=== PATIENT | female | born 1990 | race Caucasian/White ===

== ENCOUNTER 2016-09-03 18:11 | Emergency (ER) | payer OTHER ==
[2016-09-03 18:27] VITALS: RESP 18
--- NOTE | 2016-09-03 19:13 | ED ---
URI HPI - General Chief Complaint: Upper Respiratory Infection Stated Complaint: congestion, gabby, near syncope, chest pain w breath Time Seen by Provider: 09/03/16 18:33 Source: patient, RN notes reviewed Mode of arrival: ambulatory Limitations: no limitations - History of Present Illness Initial Comments: Patient is a 26-year-old female presents to the emergency room for evaluation of upper respiratory symptoms. Patient states she began not feeling well yesterday. Patient states today while she was at work she began having sinus congestion, facial pressure and dizziness. Patient states she also began having throat pain. Patient states she has a slight cough. Patient denies shortness of breath. Patient denies any significant cough. Patient denies smoking. 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 Patient denies fevers. Patient denies chest pain. Patient denies abdominal pain. Patient denies nausea, vomiting, diarrhea, constipation. Patient states she has been taking [id number] Chanda-Holmes with no relief of symptoms. - Related Data Previous Rx's Medication Instructions Recorded Fluticasone Nasal Leonard [Flonase 2 spr EA NOSTRIL DAILY #1 bottle 09/03/16 Nasal Leonard] guaiFENesin [Mucinex] 1,200 mg PO BID #10 tab.er.12h 09/03/16 Allergies Allergy/AdvReac Type Severity Reaction Status Date / Time No Known Allergies Allergy Verified 09/03/16 18:27 Review of Systems ROS Statement: Those systems with pertinent positive or pertinent negative responses have been documented in the HPI. ROS Other: All systems not noted in ROS Statement are negative. Past Medical History Past Medical History: No Reported History Additional Past Medical History / Comment(s): Herpes Genitalis--possible outbreak 11/14/2013 History of Any Multi-Drug Resistant Organisms: None Reported Past Surgical History: Section, Tonsillectomy Additional Past Surgical History / Comment(s): Adenoidectomy, [place] Teeth Past Anesthesia/Blood Transfusion Reactions: Postoperative Nausea & Vomiting ( PONV) Past Psychological History: Anxiety, Depression Additional Psychological History / Comment(s): no medications. history of depression, no current meds. Smoking Status: Never smoker Past Alcohol Use History: None Reported Past Drug Use History: None Reported - Past Family History Mother Family Medical History: Cancer, Hypertension Father Family Medical History: Hypertension General Exam - General Exam Comments Initial Comments: Sitting in exam room in no acute distress. Limitations: no limitations General appearance: alert, in no apparent distress Head exam: Present: atraumatic, normocephalic, normal inspection Eye exam: Present: normal appearance, PERRL, EOMI Pupils: Present: normal accommodation ENT exam: Present: normal exam Expanded Mouth exam: Present: normal external inspection Teeth exam: Present: normal inspection Throat exam: normal inspection Neck exam: Present: normal inspection Respiratory exam: Present: normal lung sounds bilaterally. Absent: respiratory distress Cardiovascular Exam: Present: regular rate, normal rhythm, normal heart sounds Extremities exam: Present: normal inspection Back exam: Present: normal inspection Neurological exam: Present: alert, oriented X3, CN II-XII intact, normal gait Psychiatric exam: Present: normal affect, normal mood Skin exam: Present: warm, dry, intact, normal color. Absent: rash Course Vital Signs 09/03/16 18:25 Temperature 97.4 F L Pulse Rate 77 Respiratory 18 Rate Blood Pressure 133/69 O2 Sat by Pulse 100 Oximetry Medical Decision Making - Medical Decision Making Patient is a 26-year-old female presents to the emergency room for evaluation of upper respiratory symptoms. Chest x-ray shows no acute findings. Influenza negative. Strep test negative. Place patient on Mucinex and Flonase and advised to follow-up with her primary care provider symptoms are not improving in 5-7 days. Patient stated she understands everything that was discussed with her. Return parameters discussed. Case discussed Dr. Thomson. - Lab Data Lab Results 09/03/16 09/03/16 Range/Units 19:18 19:18 Influenza Type A RNA Not Detected (Not Detectd) Influenza Type B (PCR) Not Detected (Not Detectd) Group A Strep Rapid Negative (Negative) - Radiology Data Radiology results: report reviewed, image reviewed Disposition Clinical Impression: Upper respiratory infection Disposition: HOME SELF-CARE Condition: Good Instructions: Upper Respiratory Infection (ED) Additional Instructions: Take Mucinex and use Flonase as directed. Alternate Tylenol or Motrin as needed for fever/bodyaches. Please follow up with primary care provider if symptoms are not improving in 5-7 days. If any new symptom arises or symptoms worsen, return to ER as soon as possible. Prescriptions: Fluticasone Nasal Leonard [Flonase Nasal Leonard] 2 spr EA NOSTRIL DAILY #1 bottle guaiFENesin [Mucinex] 1,200 mg PO BID #10 tab.er.12h Referrals: Cm Kruse MD [Primary Care Provider] - 1-2 days Time of Disposition: 20:17
--- NOTE | 2016-09-03 19:39 | XR ---
EXAMINATION TYPE: XR chest 1V DATE OF EXAM: 09/03/2016 7:30 PM COMPARISON: NONE HISTORY: Cough and congestion. TECHNIQUE: Single frontal view of the chest is obtained. FINDINGS: There is no focal air space opacity, pleural effusion, or pneumothorax seen. The cardiac silhouette size is within normal limits. The osseous structures are intact. IMPRESSION: No acute process.
[2016-09-03 20:28] VITALS: BP 120/78; PULSE 87; TEMP 98
== END 2016-09-03 20:28 | disposition home or self-care (01) ==
LOC: EC 18:11
DX: J06.9 Acute upper respiratory infection, unspecified (principal)
CPT/HCPCS: 71010; 87081; 87430; 87502; 99283

== ENCOUNTER 2016-11-08 06:34 | Emergency (ER) | payer OTHER ==
[2016-11-08] MEDS ORDERED: SODIUM CHLORIDE 0.9% 1,000 ML IV STA ×2 (07:22)
[2016-11-08] MEDS ORDERED: PANTOPRAZOLE 40 MG/10 ML VIAL IVP STA (07:22)
[2016-11-08] MEDS ORDERED: ONDANSETRON 4 MG/2 ML VIAL IVP STA (07:22)
--- NOTE | 2016-11-08 07:44 | ED ---
General Adult HPI - General Chief complaint: Abdominal Pain Stated complaint: abd pain, nausea Time Seen by Provider: 11/08/16 07:14 Source: patient, RN notes reviewed, old records reviewed Mode of arrival: ambulatory Limitations: no limitations - History of Present Illness Initial comments: This is a 26-year-old female ER today with abdominal pain. Patient does sore from epigastric to right upper quadrant abdominal pain with nausea and occasional diarrhea. Patient is a , denies chance of after tubal ligation. Patient states every time she she gets nauseous and is very bowel pain. Indigestion. No vomiting, she is does have persistent loose stools not frequent enough to be diarrhea, but does state that there is no blood. No [place] C no sick contacts. No change in medications, patient is on no weight loss or dietary regiments - Related Data Home Medications Medication Instructions Recorded Confirmed Acetaminophen Tab [Tylenol Tab] 1,000 mg PO ONCE PRN 11/08/16 11/08/16 Allergies Allergy/AdvReac Type Severity Reaction Status Date / Time No Known Allergies Allergy Verified 11/08/16 08:01 Review of Systems ROS Statement: Those systems with pertinent positive or pertinent negative responses have been documented in the HPI. ROS Other: All systems not noted in ROS Statement are negative. Past Medical History Past Medical History: No Reported History Additional Past Medical History / Comment(s): Herpes Genitalis--possible outbreak 11/14/2013 History of Any Multi-Drug Resistant Organisms: None Reported Past Surgical History: Section, Tonsillectomy Additional Past Surgical History / Comment(s): Adenoidectomy, [place] Teeth Past Anesthesia/Blood Transfusion Reactions: Postoperative Nausea & Vomiting ( PONV) Past Psychological History: Anxiety, Depression Additional Psychological History / Comment(s): no medications. history of depression, no current meds. Smoking Status: Never smoker Past Alcohol Use History: None Reported Past Drug Use History: None Reported - Past Family History Mother Family Medical History: Cancer, Hypertension Father Family Medical History: Hypertension General Exam Limitations: no limitations General appearance: alert, in no apparent distress Head exam: Present: atraumatic, normocephalic, normal inspection Eye exam: Present: normal appearance, PERRL, EOMI. Absent: scleral icterus, conjunctival injection, periorbital swelling ENT exam: Present: normal exam, mucous membranes moist Neck exam: Present: normal inspection. Absent: tenderness, meningismus, lymphadenopathy Respiratory exam: Present: normal lung sounds bilaterally. Absent: respiratory distress, wheezes, rales, rhonchi, stridor Cardiovascular Exam: Present: regular rate, normal rhythm, normal heart sounds. Absent: systolic murmur, diastolic murmur, rubs, gallop, clicks GI/Abdominal exam: Present: soft, normal bowel sounds. Absent: distended, tenderness, guarding, rebound, rigid Extremities exam: Present: normal inspection, full ROM, normal capillary refill. Absent: tenderness, pedal edema, joint swelling, calf tenderness Back exam: Present: normal inspection Neurological exam: Present: alert, oriented X3, CN II-XII intact Psychiatric exam: Present: normal affect, normal mood Skin exam: Present: warm, dry, intact, normal color. Absent: rash Course Vital Signs 11/08/16 11/08/16 06:37 09:00 Temperature 97.8 F 98.0 F Pulse Rate 87 84 Respiratory 18 20 Rate Blood Pressure 146/88 126/76 O2 Sat by Pulse 99 98 Oximetry Medical Decision Making - Medical Decision Making 26 female in the ER for evaluation. Patient presented for evaluation of bag abdominal discomfort. Lab work Are Normal, Patient Will Be Given Appropriate Follow-Up with GI and General Surgery regarding Possible HIDA Scan regarding Gallbladder Disease or GI Evaluation for Food Intolerance. Patient Agrees with Plan Will Be Discharged Home - Lab Data Result diagrams: 11/08/16 07:40 11/08/16 07:40 Lab Results 11/08/16 11/08/16 11/08/16 Range/Units 07:40 07:40 07:40 WBC (3.8-10.6) k/uL RBC (3.80-5.40) m/uL Hgb (11.4-16.0) gm/dL Hct (34.0-46.0) % MCV (80.0-100.0) fL MCH (25.0-35.0) pg MCHC (31.0-37.0) g/dL RDW (11.5-15.5) % Plt Count (150-450) k/uL Neutrophils % % Lymphocytes % % Monocytes % % Eosinophils % % Basophils % % Neutrophils # (1.3-7.7) k/uL Lymphocytes # (1.0-4.8) k/uL Monocytes # (0-1.0) k/uL Eosinophils # (0-0.7) k/uL Basophils # (0-0.2) k/uL Sodium 142 (137-145) mmol/L Potassium 3.6 (3.5-5.1) mmol/L Chloride 107 (98-107) mmol/L Carbon Dioxide 26 (22-30) mmol/L Anion Gap 9 mmol/L BUN 13 (7-17) mg/dL Creatinine 0.64 (0.52-1.04) mg/dL Est GFR (MDRD) Af Amer >60 (>60 ml/min/1.73 sqM) Est GFR (MDRD) Non-Af >60 (>60 ml/min/1.73 sqM) Glucose 93 (74-99) mg/dL Plasma Lactic Acid [place] (0.7-2.0) mmol/L Calcium 9.5 (8.4-10.2) mg/dL Total Bilirubin 0.7 (0.2-1.3) mg/dL AST 26 (14-36) U/L ALT 38 (9-52) U/L Alkaline Phosphatase 91 (38-126) U/L Total Protein 7.4 (6.3-8.2) g/dL Albumin 4.3 (3.5-5.0) g/dL Amylase 39 (30-110) U/L Lipase 39 (23-300) U/L Urine Color Yellow Urine Appearance Cloudy H (Clear) Urine pH 5.5 (5.0-8.0) Ur Specific [place] 1.031 (1.001-1.035) Urine Protein Trace H (Negative) Urine Glucose (UA) Negative (Negative) Urine Ketones Negative (Negative) Urine Blood Negative (Negative) Urine Nitrite Negative (Negative) Urine Bilirubin Negative (Negative) Urine Urobilinogen <2.0 (<2.0) mg/dL Ur Leukocyte Esterase Negative (Negative) Urine WBC 2 (0-5) /hpf Ur Squamous Epith Cells 4 (0-4) /hpf Urine Bacteria Rare H (None) /hpf Urine Mucus Moderate H (None) /hpf Urine HCG, Qual Not Detected (Not Detectd) 11/08/16 11/08/16 Range/Units 07:40 07:40 WBC 6.5 (3.8-10.6) k/uL RBC 4.49 (3.80-5.40) m/uL Hgb 12.8 (11.4-16.0) gm/dL Hct 36.8 (34.0-46.0) % MCV 81.9 (80.0-100.0) fL MCH 28.5 (25.0-35.0) pg MCHC 34.9 (31.0-37.0) g/dL RDW 12.7 (11.5-15.5) % Plt Count 257 (150-450) k/uL Neutrophils % 53 % Lymphocytes % 37 % Monocytes % 4 % Eosinophils % 4 % Basophils % 1 % Neutrophils # 3.4 (1.3-7.7) k/uL Lymphocytes # 2.4 (1.0-4.8) k/uL Monocytes # 0.3 (0-1.0) k/uL Eosinophils # 0.2 (0-0.7) k/uL Basophils # 0.0 (0-0.2) k/uL Sodium (137-145) mmol/L Potassium (3.5-5.1) mmol/L Chloride (98-107) mmol/L Carbon Dioxide (22-30) mmol/L Anion Gap mmol/L BUN (7-17) mg/dL Creatinine (0.52-1.04) mg/dL Est GFR (MDRD) Af Amer (>60 ml/min/1.73 sqM) Est GFR (MDRD) Non-Af (>60 ml/min/1.73 sqM) Glucose (74-99) mg/dL Plasma Lactic Acid [place] 0.8 (0.7-2.0) mmol/L Calcium (8.4-10.2) mg/dL Total Bilirubin (0.2-1.3) mg/dL AST (14-36) U/L ALT (9-52) U/L Alkaline Phosphatase (38-126) U/L Total Protein (6.3-8.2) g/dL Albumin (3.5-5.0) g/dL Amylase (30-110) U/L Lipase (23-300) U/L Urine Color Urine Appearance (Clear) Urine pH (5.0-8.0) Ur Specific [place] (1.001-1.035) Urine Protein (Negative) Urine Glucose (UA) (Negative) Urine Ketones (Negative) Urine Blood (Negative) Urine Nitrite (Negative) Urine Bilirubin (Negative) Urine Urobilinogen (<2.0) mg/dL Ur Leukocyte Esterase (Negative) Urine WBC (0-5) /hpf Ur Squamous Epith Cells (0-4) /hpf Urine Bacteria (None) /hpf Urine Mucus (None) /hpf Urine HCG, Qual (Not Detectd) - Radiology Data Radiology results: report reviewed (Ultrasound gallbladder is negative for acute disease), image reviewed Disposition Clinical Impression: Abdominal pain Disposition: HOME SELF-CARE Condition: Good Instructions: Abdominal Pain (ED) Referrals: Cm Kruse MD [Primary Care Provider] - 1-2 days
[2016-11-08 08:00] LABS: Basophils % (A) 1 %; CH 28.3; CHCM 34.7; Eosinophils # (A) 0.2 k/uL (0-0.7); Eosinophils % (A) 4 %; HCT 36.8 % (34.0-46.0); HDW 2.85; HGB 12.8 gm/dL (11.4-16.0); Luc # (Auto) 0.13; Luc % (Auto) 2; Lymphocytes # (A) 2.4 k/uL (1.0-4.8); Lymphocytes % (A) 37 %; MCH 28.5 pg (25.0-35.0); MCHC 34.9 g/dL (31.0-37.0); MCV 81.9 fL (80.0-100.0); Mean Platelet Volume 7.5; Monocytes # (A) 0.3 k/uL (0-1.0); Monocytes % (A) 4 %; Neutrophils # (A) 3.4 k/uL (1.3-7.7); Neutrophils % (A) 53 %; RBC 4.49 m/uL (3.80-5.40); RDW 12.7 % (11.5-15.5); WBC 6.5 k/uL (3.8-10.6); WBC (Perox) 6.52
[2016-11-08 08:13] LABS: ALT 38 U/L (9-52); AST 26 U/L (14-36); Alkaline Phosphatase 91 U/L (38-126); Amylase 39 U/L (30-110); Anion Gap 9 mmol/L; Blood Urea Nitrogen 13 mg/dL (7-17); Calcium 9.5 mg/dL (8.4-10.2); Carbon Dioxide 26 mmol/L (22-30); Chloride 107 mmol/L (98-107); Glucose 93 mg/dL (74-99); Non-African American GFR(MDRD) >60 (>60 ml/min/1.73 sqM); Potassium 3.6 mmol/L (3.5-5.1); Sodium 142 mmol/L (137-145); Total Bilirubin 0.7 mg/dL (0.2-1.3); Total Protein 7.4 g/dL (6.3-8.2)
[2016-11-08 08:24] LABS: Appearance,Urine Cloudy (Clear); Bacteria,Urine Rare /hpf; Bilirubin,Urine Negative (Negative); Glucose,Urine (UA) Negative (Negative); Ketones,Urine Negative (Negative); Leukocyte Esterase,Urine Negative (Negative); Mucus,Urine Moderate /hpf; Nitrite,Urine Negative (Negative); PH, Urine 5.5 (5.0-8.0); Particle Count 9766; Protein,Urine Trace (Negative); Specific Gravity,Urine 1.031 (1.001-1.035); Squamous Epithelial Cell,Urine 4 /hpf (0-4); UA Billing (MACRO vs. MICRO) MICRO; Urobilinogen,Urine <2.0 mg/dL (<2.0); WBC,Urine 2 /hpf (0-5)
--- NOTE | 2016-11-08 09:28 | US ---
EXAMINATION TYPE: US gallbladder DATE OF EXAM: 11/08/2016 8:18 AM COMPARISON: NONE CLINICAL HISTORY: Pain. Diarrhea, intermittent pain EXAM MEASUREMENTS: Liver Length: 18.5 cm Gallbladder Wall: 0.2 cm CBD: 0.2 cm Right Kidney: 10.3 x 5.9 x 3.6 cm Pancreas: echogenic Liver: wnl Gallbladder: wnl, fold seen Evidence for sonographic Good's sign: neg CBD: wnl Right Kidney: wnl IMPRESSION: No significant abnormality identified at this time.
[2016-11-08 09:58] VITALS: BP 116/80; PULSE 76; RESP 16; TEMP 97.2
== END 2016-11-08 10:10 | disposition home or self-care (01) ==
LOC: EC 06:34
DX: R10.13 Epigastric pain (principal); R10.11 Right upper quadrant pain; R11.0 Nausea; R19.7 Diarrhea, unspecified; K30 Functional dyspepsia
CPT/HCPCS: 36415; 80053; 82150; 83605; 83690; 85025; 81001; 81025; 87491; 87591; 87086; 76705; 99284; 96374; 96375; 96361 ×2; J2405; C9113

== ENCOUNTER → 2016-11-29 | Outpatient (CLI) | payer OTHER ==
--- NOTE | 2016-11-30 09:33 | NM ---
Nuclear medicine hepatobiliary scan. HISTORY: Pain. COMPARISON: Ultrasound 11/08/2016 FINDINGS: The patient received At one hour 8 ounces of oral ensure plus and 5.45 mCi of Technetium 99m Chol etec. There is normal hepatic extraction. The gallbladder is seen by 10 minutes. There is biliary to kash l clearance by 40 minutes. Ejection fraction is 49%. IMPRESSION: 1. Normal hepatobiliary exam. There may be prominence of the left biliary intrahepatic system. Mellisa rosenbaum recent ultrasound demonstrated no abnormality.
== END | disposition home or self-care (01) ==
LOC: RADNMMAIN 15:01
PROVIDERS: ATTEND Internal Medicine
DX: R10.11 Right upper quadrant pain (principal)
CPT/HCPCS: 78226; A9537

== ENCOUNTER 2017-03-29 19:12 | Emergency (ER) | payer OTHER ==
[2017-03-29 19:18] VITALS: TEMP 98.1
--- NOTE | 2017-03-29 19:56 | CT ---
EXAMINATION TYPE: CT brain wo con DATE OF EXAM: 03/29/2017 COMPARISON: 05/12/2013 HISTORY: Right side parietal pain CT DLP: 944.2 mGycm. Automated Exposure Control for Dose Reduction was Utilized. TECHNIQUE: CT scan of the head is performed without contrast. FINDINGS: Ventricles and sulci appear normal. There is no mass effect nor midline shift. There is no sign of intracranial hemorrhage. The calvarium is intact. CONCLUSION: Negative unenhanced head CT scan. No change.
[2017-03-29] MEDS ORDERED: BUTALB/APAP/CAFF 50-325-40MG TAB PO STA (20:15)
[2017-03-29] MEDS ORDERED: ONDANSETRON 4 MG ODT STARTER PACK 2 TAB BTL PO STA (20:15)
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
[2017-03-29 20:39] VITALS: BP 127/87; PULSE 60; RESP 16
--- NOTE | 2017-04-02 06:55 | CDI ---
Dear Russ ROJAS MD: Please do addendum ER document. Thank you Mindy Anderson, Head Cook. If you have any questions, please contact Music Teacher at [phone]. ATIYAD
== END 2017-03-29 20:39 | disposition home or self-care (01) ==
LOC: EC 19:12
DX: R51 Headache (principal)
CPT/HCPCS: 70450; 99284; S0119

== ENCOUNTER → 2018-01-25 | Outpatient (CLI) | payer OTHER ==
--- NOTE | 2018-01-25 23:00 | MR ---
EXAMINATION TYPE: MR brain/cspine wo DATE OF EXAM: 01/25/2018 COMPARISON: CT brain March 29, 2017 HISTORY: Headaches and cervicalgia per order. Migraine headaches for 1 year per patient. TECHNIQUE: Multiplanar, multisequence imaging of the cervical spine, brain, and brainstem are all per formed without IV contrast. FINDINGS: BRAIN: Diffusion weighted images demonstrate no evidence of a recent infarct or other diffusion abnormality. There is no extraaxial fluid collection or significant white matter signal abnormality. The ventricu lar system and cisternal spaces are normal in size and appearance. The brain volume is age appropria te. Midline structures demonstrate normal morphology. The craniocervical junction appears within normal limits. Normal vascular flow voids are present. The lobes are slightly distorted by artifact. Visuali zed paranasal sinuses are clear. Nasal septum is deviated to right of midline. IMPRESSION: No significant finding is seen to account for patient's symptoms. C-SPINE: FINDINGS: Sagittal images of the cervical spine show the craniocervical junction to appear within nor mal limits. The cervical and upper thoracic spinal cord is normal in course, caliber, and signal. V ertebral alignment is anatomic. The vertebral body and intravertebral disk heights are normal. Small posterior disc herniations are seen at C4-C5 and C5-C6 levels mildly effacing the anterior thecal sa c on sagittal images. The bone marrow signal intensity is within normal limits. No significant spurr ing is seen. Axial images show the C2-C3 and C3-C4 levels to appear within normal limits. Axial images at C4-C5 level shows central disc protrusion effacing anterior thecal sac on axial image 33, bilateral neural foramina are patent. Axial images at C5-C6 level showed tiny central disc protrusion minimally effacing anterior thecal sa c, bilateral neural foramina are patent. Axial images at C6-C7 level showed tiny broad based right paracentral disc protrusion minimally effac ing anterior thecal sac, bilateral neural foramina are patent. Axial images at C7-T1 level are felt within normal limits. IMPRESSION: Multilevel tiny disc herniations with most prominent disc herniation C4-C5 level effacing the anterior thecal sac.
== END | disposition home or self-care (01) ==
LOC: RADMRIMAIN 20:43
PROVIDERS: ATTEND Psychiatry & Neurology Pain Medicine
DX: M50.221 Other cervical disc displacement at C4-C5 level (principal); R51 Headache
CPT/HCPCS: 70551; 72141

== ENCOUNTER → 2018-10-30 | Outpatient (CLI) | payer OTHER ==
--- NOTE | 2018-10-30 21:51 | MR ---
EXAMINATION TYPE: MR brain wo con DATE OF EXAM: 10/30/2018 COMPARISON: 01/25/2018 HISTORY: Headache, Dizziness CONTRAST: Performed utilizing 0 mL intravenous Gadavist gadolinium contrast. TECHNIQUE: Multiplanar, multiecho imaging on a 3.0 Aminata magnet is performed through the brain. Stud y is performed within 24 hours of arrival to the hospital. The craniovertebral junction is normal. The pituitary is normal. Diffusion-weighted imaging is performed. No abnormal hyperintensity is present to suggest an acute i ntracranial infarct or acute ischemic change. Signal through the brain appears normal. Nicholson-white matter differentiation is preserved. Ventricles and sulci are appropriate for the patient age. Optic chiasm is visualized is normal. Paranasal sinuses and mastoid air cells are clear. IMPRESSIONS: 1. No suspicious acute signal changes through the brain. 2. Examination is stable from the 2017 comparison.
== END ==
LOC: RADMRIMAIN 17:23
PROVIDERS: ATTEND Psychiatry & Neurology Neurology
DX: R51 Headache (principal)
CPT/HCPCS: 70551

== ENCOUNTER 2020-01-11 18:19 | Emergency (ER) | payer OTHER ==
[2020-01-11 18:23] VITALS: TEMP 98.6
--- NOTE | 2020-01-11 19:11 | US ---
EXAMINATION TYPE: US venous doppler duplex LE RT DATE OF EXAM: 01/11/2020 6:59 PM COMPARISON: US CLINICAL HISTORY: r/o dvt. Right calf pain SIDE PERFORMED: Right TECHNIQUE: The lower extremity deep venous system is examined utilizing real time linear array sonog moisés with graded compression, doppler sonography and color-flow sonography. VESSELS IMAGED: External Iliac Vein (EIV) Common Femoral Vein Deep Femoral Vein Greater Saphenous Vein * Femoral Vein Popliteal Vein Small Saphenous Vein * Proximal Calf Veins (* superficial vessels) Right Leg: Negative for DVT, patent varicose veins medial right calf in area of pain IMPRESSION: No evidence of deep vein thrombosis in the right leg. There are superficial varicose vein s.
--- NOTE | 2020-01-11 19:56 | ED ---
Extremity Problem HPI - General Chief complaint: Extremity Problem,Nontraumatic Stated complaint: Leg swelling Time Seen by Provider: 01/11/20 18:25 Source: patient Mode of arrival: ambulatory Limitations: no limitations - History of Present Illness Initial comments: Patient is a 29-year-old female who presents emergency Department with reported right distal thigh pain and Swelling. Patient reports that the pain started last night. She does have significant varicose veins and states that she will have swelling which is worse in her right leg than her left. She denies a history of DVT or PE. Admits to history of superficial thrombophlebitis. Admits the area is tender to touch. Denies inability to ambulate. No weakness in the extremity. Denies any fevers or chills. No chest pain or shortness of breath. Denies cough or hemoptysis. There are no other alleviating, precipitating or modifying factors - Related Data Home Medications Medication Instructions Recorded Confirmed No Known Home Medications 06/19/17 06/19/17 Allergies Allergy/AdvReac Type Severity Reaction Status Date / Time No Known Allergies Allergy Verified 01/11/20 18:22 Review of Systems ROS Statement: Those systems with pertinent positive or pertinent negative responses have been documented in the HPI. ROS Other: All systems not noted in ROS Statement are negative. Past Medical History Past Medical History: No Reported History Additional Past Medical History / Comment(s): Herpes Genitalis--possible outbreak 11/14/2013, migraine headaches History of Any Multi-Drug Resistant Organisms: None Reported Past Surgical History: Section, Tonsillectomy Additional Past Surgical History / Comment(s): Adenoidectomy, [place] Teeth Past Anesthesia/Blood Transfusion Reactions: Postoperative Nausea & Vomiting (PONV) Past Psychological History: Anxiety, Depression Smoking Status: Never smoker Past Alcohol Use History: None Reported Past Drug Use History: None Reported - Past Family History Mother Family Medical History: Cancer, Hypertension Father Family Medical History: Hypertension General Exam Limitations: no limitations General appearance: alert, in no apparent distress Respiratory exam: Present: normal lung sounds bilaterally. Absent: respiratory distress, wheezes, rales, rhonchi, stridor Cardiovascular Exam: Present: regular rate, normal rhythm, normal heart sounds. Absent: systolic murmur, diastolic murmur, rubs, gallop, clicks Extremities exam: Present: pedal edema, other (marked varicose vein burden. Right>left. Right posterior thigh has tender varicose vein with surrounding edema and erythema. No calf pain bilaterally. 2+ DP and PT pulses. Intact sensation. 5/5 muscle strength in the bilateral lower extremities) Neurological exam: Present: alert, oriented X3, CN II-XII intact Course Vital Signs 01/11/20 01/11/20 18:20 20:08 Temperature 98.6 F Pulse Rate 83 82 Respiratory 16 18 Rate Blood Pressure 151/89 131/86 O2 Sat by Pulse 98 98 Oximetry Medical Decision Making - Medical Decision Making Upon arrival the patient is placed into room 22. No history and physical exam is performed. Examination reveals tenderness to palpation of the patient's righ t distal thigh. Ultrasound was performed which demonstrates varicosity at the area pain. No signs of superficial Phlebitis or DVT. I Did Discuss Diagnosis, Differential and Treatment Options. I Did Recommend That the Patient Follow up with Her Primary Care Physician. Use Compression Stockings and Take NSAIDs As Needed. Return to the Emergency Room for Any New or Worsening Symptoms. Patient Was in Agreement That She Was Discharged Home in Stable Condition Disposition Clinical Impression: Right leg pain, Varicose vein of leg Disposition: HOME SELF-CARE Condition: Stable Instructions (If sedation given, give patient instructions): Venous Insufficiency (DC) Additional Instructions: Please follow-up with your doctor for further recommendations in regards to treatment of her varicose veins. I do recommend wearing compression stockings. Take anti-inflammatories. Return to the emergency room for any new or worsening symptoms Is patient prescribed a controlled substance at d/c from ED?: No Referrals: Cm Kruse MD [Primary Care Provider] - 1-2 days Time of Disposition: 19:56
[2020-01-11 20:10] VITALS: BP 131/86; PULSE 82; RESP 18
== END 2020-01-11 20:12 | disposition home or self-care (01) ==
LOC: EC 18:19
DX: I83.811 Varicose veins of right lower extremity with pain (principal); I83.891 Varicose veins of right lower extremity with other complications
CPT/HCPCS: 99283

== ENCOUNTER → 2020-04-05 | Outpatient (CLI) | payer OTHER | END | disposition home or self-care (01) | LOC: LABWHC1 13:19 | PROVIDERS: ATTEND Internal Medicine | DX: R05 Cough (principal); J02.9 Acute pharyngitis, unspecified; R09.81 Nasal congestion | CPT/HCPCS: U0003; C9803 ==

== ENCOUNTER 2020-11-16 18:33 | Emergency (ER) | payer OTHER ==
[2020-11-16] MEDS ORDERED: SODIUM CHLORIDE 0.9% 1,000 ML IV STA (19:14)
[2020-11-16] MEDS ORDERED: METOCLOPRAMIDE 5 MG/ML 2 ML VIAL IVP STA (19:15)
[2020-11-16] MEDS ORDERED: KETOROLAC 15 MG/ML 1 ML VIAL IVP STA (19:15)
[2020-11-16] MEDS ORDERED: diphenhydrAMINE 50 MG/ML 1 ML VIAL IVP STA (19:15)
--- NOTE | 2020-11-16 19:17 | ED ---
Headache HPI - General Chief Complaint: Headache Stated Complaint: migraine Time Seen by Provider: 11/16/20 19:03 Mode of arrival: ambulatory Limitations: no limitations - History of Present Illness Initial Comments: 30-year-old female with history of microcytic presented emergency Department chief complaint of a headache. States the symptoms began yesterday night with a gradual onset. States the pain is 8/10 at this time mostly located on the left side of the forehead head. Patient also reports photosensitivity with nausea but only one episode of vomiting early this one. She also reports 1 episode of diarrhea which is typical for her. States she took Benadryl and Tylenol home with no significant permanent symptoms. She denies any visual changes. She denies any one-sided weakness or paresthesias. Not the worst headache of her life. Denies any chest pain or shortness of breath. She only sees a neurologist for her chronic headaches. Patient currently started her menstrual period. - Related Data Previous Rx's Medication Instructions Recorded Ondansetron Odt [Zofran Odt] 4 mg PO Q8HR PRN #14 tab 11/16/20 Allergies Allergy/AdvReac Type Severity Reaction Status Date / Time No Known Allergies Allergy Verified 11/16/20 18:44 Review of Systems ROS Statement: Those systems with pertinent positive or pertinent negative responses have been documented in the HPI. ROS Other: All systems not noted in ROS Statement are negative. Past Medical History Past Medical History: No Reported History Additional Past Medical History / Comment(s): Herpes Genitalis--possible outbreak 11/14/2013, migraine headaches History of Any Multi-Drug Resistant Organisms: None Reported Past Surgical History: Section, Tonsillectomy, Tubal Ligation Additional Past Surgical History / Comment(s): Adenoidectomy, [place] Teeth Past Anesthesia/Blood Transfusion Reactions: Postoperative Nausea & Vomiting (PONV) Past Psychological History: Anxiety, Bipolar, Depression Smoking Status: Never smoker Past Alcohol Use History: None Reported Past Drug Use History: None Reported - Past Family History Mother Family Medical History: Cancer, Hypertension Father Family Medical History: Hypertension General Exam Limitations: no limitations General appearance: alert, in no apparent distress Head exam: Present: atraumatic, normocephalic, normal inspection Eye exam: Present: normal appearance, PERRL, EOMI Pupils: Present: normal accommodation ENT exam: Present: normal exam, normal oropharynx, mucous membranes moist, TM's normal bilaterally, normal external ear exam Neck exam: Present: normal inspection, full ROM. Absent: tenderness Respiratory exam: Present: normal lung sounds bilaterally. Absent: respiratory distress, wheezes, rales, rhonchi, stridor, chest wall tenderness Cardiovascular Exam: Present: regular rate, normal rhythm, normal heart sounds. Absent: systolic murmur GI/Abdominal exam: Present: soft. Absent: distended, tenderness, guarding, rebound, rigid Extremities exam: Present: normal inspection, full ROM, normal capillary refill. Absent: tenderness, pedal edema, joint swelling Back exam: Present: normal inspection, full ROM. Absent: tenderness, CVA tenderness (R), CVA tenderness (L) Neurological exam: Present: alert, oriented X3 Psychiatric exam: Present: normal affect, normal mood Skin exam: Present: warm, dry, intact, normal color Course Vital Signs 11/16/20 11/16/20 18:42 20:20 Temperature 98.3 F 98.0 F Pulse Rate 113 H 53 L Respiratory 20 18 Rate Blood Pressure 135/83 107/69 O2 Sat by Pulse 99 98 Oximetry Medical Decision Making - Medical Decision Making 30-year-old female with history of migraines presents emergency Department with a chief complaint of a headache. On physical examination, no focal neural deficits. This is her typical migraine headache is alleviated with a migraine cocktail involving Reglan, Benadryl, Toradol and IV fluids. On reevaluation, patient reports improvement in symptoms. Patient states she feels comfortable going home. I did give her a prescription for Zofran. Return parameters were discussed with patient was an ascending agreeable. She will follow up with her neurologist. Case discussed with Disposition Clinical Impression: Headache Disposition: HOME SELF-CARE Condition: Stable Instructions (If sedation given, give patient instructions): Acute Headache (ED) Additional Instructions: Please return to the Emergency Department if symptoms worsen or any other concerns. Prescriptions: Ondansetron Odt [Zofran Odt] 4 mg PO Q8HR PRN #14 tab PRN Reason: Nausea Is patient prescribed a controlled substance at d/c from ED?: No Referrals: Cm Kruse MD [Primary Care Provider] - 1-2 days Time of Disposition: 20:16
[2020-11-16 20:28] VITALS: BP 107/69; PULSE 53; RESP 18; TEMP 98
== END 2020-11-16 20:34 | disposition home or self-care (01) ==
LOC: EC 18:33
DX: R51.9 Headache, unspecified (principal); F32.9 Major depressive disorder, single episode, unspecified; Z90.09 Acquired absence of other part of head and neck; Z98.51 Tubal ligation status
CPT/HCPCS: 99283; 96374; 96375 ×2; 96361; J1200; J2765; J1885

== ENCOUNTER 2021-11-20 15:09 | Emergency (ER) | payer OTHER ==
[2021-11-20 15:23] VITALS: BP 129/87; PULSE 65; RESP 20; TEMP 97.7
== END 2021-11-20 17:33 | disposition left against medical advice (07) ==
LOC: EC 15:09
DX: Z53.21 Procedure and treatment not carried out due to patient leaving prior to being seen by health care provider (principal); U07.1 COVID-19; R51.9 Headache, unspecified
CPT/HCPCS: 87635; 99499

== ENCOUNTER 2022-04-20 08:30 | Emergency (ER) | payer OTHER ==
[2022-04-20 08:41] VITALS: RESP 18; TEMP 97.8
[2022-04-20] MEDS ORDERED: SODIUM CHLORIDE 0.9% 2,000 ML IV ONE (08:45)
[2022-04-20] MEDS ORDERED: KETOROLAC 15 MG/ML 1 ML VIAL IVP STA (08:45)
--- NOTE | 2022-04-20 11:04 | ED ---
Headache HPI - General Chief Complaint: Headache Stated Complaint: migrane Time Seen by Provider: 04/20/22 08:35 Source: RN notes reviewed Mode of arrival: ambulatory Limitations: no limitations - History of Present Illness Initial Comments: 31-year-old female presents emergency from chief complaint of migraine headache. Patient states she has chronic migraines unable to alleviate it sometimes and has present emergency department. Patient states she's been taking her normal cocktail at home because it makes her too tired. Patient presents today with her normal headache pattern on the left side no visual changes at this time states she does see Dr. Kymberly victoria and multiple imaging no fevers chills no neck pain no focal weakness while nausea - Related Data Previous Rx's Medication Instructions Recorded Ondansetron Odt [Zofran Odt] 4 mg PO Q8HR PRN #14 tab 11/16/20 Allergies Allergy/AdvReac Type Severity Reaction Status Date / Time No Known Allergies Allergy Verified 04/20/22 08:41 Review of Systems ROS Statement: Those systems with pertinent positive or pertinent negative responses have been documented in the HPI. ROS Other: All systems not noted in ROS Statement are negative. Past Medical History Past Medical History: No Reported History Additional Past Medical History / Comment(s): Herpes Genitalis--possible out break 11/14/2013, migraine headaches History of Any Multi-Drug Resistant Organisms: None Reported Past Surgical History: Section, Tonsillectomy, Tubal Ligation Additional Past Surgical History / Comment(s): Adenoidectomy, [place] Teeth Past Anesthesia/Blood Transfusion Reactions: Postoperative Nausea & Vomiting (PONV) Past Psychological History: Anxiety, Bipolar, Depression Smoking Status: Never smoker Past Alcohol Use History: None Reported Past Drug Use History: Marijuana - Past Family History Mother Family Medical History: Cancer, Hypertension Father Family Medical History: Hypertension General Exam Limitations: no limitations General appearance: alert, in no apparent distress Head exam: Present: atraumatic, normocephalic, normal inspection Eye exam: Present: normal appearance, PERRL, EOMI. Absent: scleral icterus, conjunctival injection, periorbital swelling ENT exam: Present: normal exam, normal oropharynx, mucous membranes moist Neck exam: Present: normal inspection, full ROM. Absent: tenderness, meningismus, lymphadenopathy Respiratory exam: Present: normal lung sounds bilaterally. Absent: respiratory distress, wheezes, rales, rhonchi, stridor Cardiovascular Exam: Present: regular rate, normal rhythm, normal heart sounds. Absent: systolic murmur, diastolic murmur, rubs, gallop, clicks GI/Abdominal exam: Present: soft, normal bowel sounds. Absent: distended, tenderness, guarding, rebound, rigid Neurological exam: Present: alert, oriented X3, CN II-XII intact, reflexes normal. Absent: motor sensory deficit Skin exam: Present: warm, dry, intact, normal color. Absent: rash Course Vital Signs 04/20/22 04/20/22 04/20/22 08:37 10:02 11:13 Temperature 97.8 F Pulse Rate 78 73 72 Respiratory 18 18 18 Rate Blood Pressure 130/82 125/79 129/81 O2 Sat by Pulse 100 99 96 Oximetry Medical Decision Making - Medical Decision Making Patient is improved after migraine cocktail be discharged in stable condition. Disposition Clinical Impression: Migraine headache Disposition: HOME SELF-CARE Condition: Stable Instructions (If sedation given, give patient instructions): Acute Headache (ED) Additional Instructions: Please return to the Emergency Department if symptoms worsen or any other concerns. Is patient prescribed a controlled substance at d/c from ED?: No Referrals: Cm Kruse MD [Primary Care Provider] - 1-2 days Time of Disposition: 11:04
[2022-04-20 11:14] VITALS: BP 129/81; PULSE 72
== END 2022-04-20 11:14 | disposition home or self-care (01) ==
LOC: EC 08:30
DX: G43.909 Migraine, unspecified, not intractable, without status migrainosus (principal)
CPT/HCPCS: 99283; 96374; 96375; 96361; J1885; J1790

== ENCOUNTER 2023-02-20 03:26 | Emergency (ER) | payer OTHER ==
[2023-02-20 03:44] VITALS: TEMP 98.8
[2023-02-20] MEDS ORDERED: KETOROLAC 15 MG/ML 1 ML VIAL IM STA (03:59)
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
[2023-02-20 06:20] VITALS: BP 133/86; PULSE 86; RESP 18
--- NOTE | 2023-02-20 06:42 | CT ---
EXAMINATION TYPE: CT brain carmelita grace DATE OF EXAM: 02/20/2023 COMPARISON: 03/29/2017 HISTORY: Fall, pain CT Brain: Unenhanced CT of the brain was performed. The ventricles, basal cisterns and sulci overlying the cerebral convexities demonstrate a normal appe arance. There is no evidence for intracranial hemorrhage or sulcal effacement. No mass effects are seen. Area of decreased attenuation left parietal lobe seen on the axial data se t 27 of 55 corresponds to a sulcus on the coronal and sagittal data sets. If symptoms persist consider MRI. Osseous calvarium is intact. IMPRESSION: No acute intracranial process CT Cervical Spine: Unenhanced CT of the cervical spine was performed with bone and soft tissue window settings submitted . Coronal and sagittal reconstruction is obtained. There is normal alignment and prevertebral soft tissues. I do not see evidence for fracture or sublu xation. Mild scattered degenerative disc space narrowing and spondylosis. The lung apices are clear. IMPRESSION: No evidence for acute fracture or subluxation of the cervical spine.
== END 2023-02-20 06:20 | disposition home or self-care (01) ==
LOC: EC 03:26
DX: S16.1XXA Strain of muscle, fascia and tendon at neck level, initial encounter (principal); R45.6 Violent behavior; F12.90 Cannabis use, unspecified, uncomplicated; Z86.59 Personal history of other mental and behavioral disorders; X58.XXXA Exposure to other specified factors, initial encounter; Y09 Assault by unspecified means
CPT/HCPCS: 72125; 70450; 99284; 96372; J1885

== ENCOUNTER 2024-04-17 14:50 | Emergency (ER) | payer OTHER ==
[2024-04-17 14:56] VITALS: PULSE 80; TEMP 97.8
--- NOTE | 2024-04-17 15:05 | ED ---
Headache HPI - General Chief Complaint: Headache Stated Complaint: migraine Time Seen by Provider: 04/17/24 15:05 Source: patient, RN notes reviewed Mode of arrival: ambulatory Limitations: no limitations - History of Present Illness Initial Comments: This is a 33-year-old female with a history of pseudotumor and migraine headaches and bipolar disorder presents emerged part with chief complaint of migraine headache that started yesterday evening. States that the headache has persisted at home and she is attempted take Tylenol Motrin at home with minimal relief. Patient has follow-up with a neurologist and has an appointment scheduled in May for follow-up. She is taken Fioricet in the past for migraines however is not risk of this medication at this time. She endorses photophobia, nausea, frontal head pain. Denies any new symptoms as compared to previous migraine attacks. Denies fevers, chills, cough, rhinorrhea. - Related Data Previous Rx's Medication Instructions Recorded Ondansetron Odt [Zofran Odt] 4 mg PO Q8HR PRN #14 tab 11/16/20 Allergies Allergy/AdvReac Type Severity Reaction Status Date / Time No Known Allergies Allergy Verified 04/17/24 14:56 Review of Systems ROS Statement: Those systems with pertinent positive or pertinent negative responses have been documented in the HPI. ROS Other: All systems not noted in ROS Statement are negative. Past Medical History Past Medical History: No Reported History Additional Past Medical History / Comment(s): Herpes Genitalis--possible outbreak 11/14/2013, migraine headaches History of Any Multi-Drug Resistant Organisms: None Reported Past Surgical History: Section, Tonsillectomy, Tubal Ligation Additional Past Surgical History / Comment(s): Adenoidectomy, [place] Teeth Past Anesthesia/Blood Transfusion Reactions: Postoperative Nausea & Vomiting (PONV) Past Psychological History: Anxiety, Bipolar, Depression Smoking Status: Never smoker Past Alcohol Use History: None Reported Past Drug Use History: Marijuana - Past Family History Mother Family Medical History: Cancer, Hypertension Father Family Medical History: Hypertension General Exam Limitations: no limitations General appearance: alert, in no apparent distress Head exam: Present: atraumatic, normocephalic, normal inspection Eye exam: Present: normal appearance, PERRL, EOMI, other (photophobia). Absent: scleral icterus, conjunctival injection, periorbital swelling Neck exam: Present: normal inspection. Absent: tenderness, meningismus, lymphadenopathy Respiratory exam: Present: normal lung sounds bilaterally. Absent: respiratory distress, wheezes, rales, rhonchi, stridor Cardiovascular Exam: Present: regular rate, normal rhythm, normal heart sounds. Absent: systolic murmur, diastolic murmur, rubs, gallop, clicks GI/Abdominal exam: Present: soft, normal bowel sounds. Absent: distended, tenderness, guarding, rebound, rigid Extremities exam: Present: normal inspection, full ROM, normal capillary refill. Absent: tenderness, pedal edema, joint swelling, calf tenderness Back exam: Present: normal inspection Skin exam: Present: warm, dry, intact, normal color. Absent: rash Course Vital Signs 04/17/24 04/17/24 14:54 16:47 Temperature 97.8 F Pulse Rate 80 80 Respiratory 20 18 Rate Blood Pressure 132/86 130/80 O2 Sat by Pulse 100 98 Oximetry Medical Decision Making - Medical Decision Making Was pt. sent in by a medical professional or institution (Dr. PA, [employer], urgent care, hospital, or half-way...) When possible be specific @ -No Did you speak to anyone other than the patient for history (EMS, parent, family, police, friend...)? What history was obtained from this source @ -No Did you review nursing and triage notes (agree or disagree)? Why? @ -I reviewed and agree with nursing and triage notes Were old charts reviewed (outside hosp., previous admission, EMS record, old EKG, old radiological studies, urgent care reports/EKG's, half-way records)? Report findings @ -No old charts were reviewed Differential Diagnosis (chest pain, altered mental status, abdominal pain women, abdominal pain men, vaginal bleeding, weakness, fever, dyspnea, syncope, headache, dizziness, GI bleed, back pain, seizure, CVA, palpatations, mental health, musculoskeletal)? @ -Differential Headache: Migraine, tension, cluster, carbon monoxide, central venous thrombosis, pension karma temporal arteritis, acute closure glaucoma, intercranial hemorrhage, mastoiditis, sinusitis, head injury, this is not meant to be an all-inclusive list. EKG interpreted by me (3pts min.). @ -None X-rays interpreted by me (1pt min.). @ -None done CT interpreted by me (1pt min.). @ -None done U/S interpreted by me (1pt. min.). @ -None done What testing was considered but not performed or refused? (CT, X-rays, U/S, labs)? Why? @ -CT imaging of the head was considered but deferred at this time. Patient states that symptoms of her migraine are the same as she has had in the past however her symptoms did not resolved at home with supportive treatment therefore she present to the emergency department. Patient follows with a neurologist and has an appointment scheduled in May and she is agree with deferring CT imaging at this time. What meds were considered but not given or refused? Why? @ -None Did you discuss the management of the patient with other professionals (professionals i.e. , PA, [employer], lab, RT, psych nurse, group social worker, soils analyst, teacher, commanding officer homicide squad, rn field case manager)? Give summary @ -No Was smoking cessation discussed for >3mins.? @ -No Was critical care preformed (if so, how long)? @ -No Were there social determinants of health that impacted care today? How? (Homelessness, low income, unemployed, alcoholism, drug addiction, transportation, low edu. Level, literacy, decrease access to med. care, fci, rehab)? @ -No Was there de-escalation of care discussed even if they declined (Discuss DNR or withdrawal of care, Hospice)? DNR status @ -No What co-morbidities impacted this encounter? (DM, HTN, Smoking, COPD, CAD, Cancer, CVA, ARF, Chemo, Hep., AIDS, mental health diagnosis, sleep apnea, morbid obesity)? @ -None Was patient admitted / discharged? Hospital course, mention meds given and route, prescriptions, significant lab abnormalities, going to OR and other pertinent info. @ -Discharged. 33-year-old female with migraine headache. Vitals are stable on my evaluation the patient she is no signs acute distress. Neurological examination no acute deficits. She is provided with fluids, antiemetics, Benadryl, and analgesics including Toradol and Tylenol. On reevaluation patient states that she is feeling much better and she is soundly sleeping on my evaluation. States that she feels comfortable for discharge. Recommend that she follow-up with her primary care provider outpatient and continue to follow with her neurologist as scheduled for further evaluation of migraine headaches. All questions answered at bedside and strict return parameters discussed with the patient she is verbalized understanding. Case discussed with Dr. Olivo Undiagnosed new problem with uncertain prognosis? @ -No Drug Therapy requiring intensive monitoring for toxicity (Heparin, Nitro, Insulin, Cardizem)? @ -No Were any procedures done? @ -No Diagnosis/symptom? @ -migraine headache Acute, or Chronic, or Acute on Chronic? @ -Acute Uncomplicated (without systemic symptoms) or Complicated (systemic symptoms)? @ -Uncomplicated Side effects of treatment? @ -No Exacerbation, Progression, or Severe Exacerbation? @ -No Poses a threat to life or bodily function? How? (Chest pain, [place], [place], pneumonia, PE, COPD, DKA, ARF, appy, cholecystitis, CVA, Diverticulitis, Homicidal, Suicidal, threat to staff... and all critical care pts) @ -No Disposition Clinical Impression: Migraine Disposition: HOME SELF-CARE Condition: Good Instructions (If sedation given, give patient instructions): Migraine Headache (ED) Additional Instructions: Please return to the Emergency Department if symptoms worsen or any other concerns. Is patient prescribed a controlled substance at d/c from ED?: No Referrals: None,Stated [Primary Care Provider] - 1-2 days Time of Disposition: 16:40
[2024-04-17] MEDS: ACETAMINOPHEN TAB 500 MG TAB PO STA (15:40)
[2024-04-17] MEDS: SODIUM CHLORIDE 0.9% 1,000 ML IV STA (15:40)
[2024-04-17] MEDS: ONDANSETRON 4 MG/2 ML VIAL IVP STA (15:40)
[2024-04-17] MEDS: diphenhydrAMINE 50 MG/ML 1 ML VIAL IVP STA (15:41)
[2024-04-17] MEDS: KETOROLAC 15 MG/ML 1 ML VIAL IVP STA (15:41)
[2024-04-17 16:47] VITALS: BP 130/80; RESP 18
== END 2024-04-17 16:47 | disposition home or self-care (01) ==
LOC: EC 14:50
DX: G43.909 Migraine, unspecified, not intractable, without status migrainosus (principal)
CPT/HCPCS: 96361; 96374; 96375; 99283

== ENCOUNTER 2024-04-21 08:35 | Emergency (ER) | payer OTHER ==
[2024-04-21 08:38] VITALS: TEMP 98.5
--- NOTE | 2024-04-21 09:10 | ED ---
Headache HPI - General Chief Complaint: Headache Stated Complaint: Migraine Time Seen by Provider: 04/21/24 08:44 Source: patient, RN notes reviewed Mode of arrival: ambulatory Limitations: no limitations - History of Present Illness Initial Comments: This is a 33-year-old female who presents to the emergency department for a migraine. Patient was evaluated here 4 days ago for a migraine. Symptoms had started the day prior. The headache was well-controlled while she was here and she was discharged home. However, states that after going home the migraine returned and she has not been able to get rid of it. She would not describe this as the worst headache of her life. States that it feels like a typical migraine, it is just hanging on longer which does occasionally happen. Reports associated nausea and photophobia. MD Complaint: headache, "migraine" - Related Data Home Medications Medication Instructions Recorded Confirmed Mirtazapine 30 mg PO HS 04/21/24 04/21/24 lamoTRIgine 200 mg PO DAILY 04/21/24 04/21/24 Previous Rx's Medication Instructions Recorded Ketorolac [Toradol] 10 mg PO Q6HR PRN #15 tab 04/21/24 Ondansetron Odt [Zofran Odt] 4 mg PO Q8HR PRN #15 tab 04/21/24 Allergies Allergy/AdvReac Type Severity Reaction Status Date / Time No Known Allergies Allergy Verified 04/21/24 12:53 Review of Systems ROS Statement: Those systems with pertinent positive or pertinent negative responses have been documented in the HPI. ROS Other: All systems not noted in ROS Statement are negative. Past Medical History Past Medical History: No Reported History Additional Past Medical History / Comment(s): Herpes Genitalis--possible outbreak 11/14/2013, migraine headaches History of Any Multi-Drug Resistant Organisms: None Reported Past Surgical History: Section, Tonsillectomy, Tubal Ligation Additional Past Surgical History / Comment(s): Adenoidectomy, [place] Teeth Past Anesthesia/Blood Transfusion Reactions: Postoperative Nausea & Vomiting (PONV) Past Psychological History: Anxiety, Bipolar, Depression Smoking Status: Never smoker Past Alcohol Use History: None Reported Past Drug Use History: Marijuana - Past Family History Mother Family Medical History: Cancer, Hypertension Father Family Medical History: Hypertension General Exam Limitations: no limitations General appearance: alert, in no apparent distress Head exam: Present: atraumatic, normocephalic, normal inspection Eye exam: Present: normal appearance, PERRL, EOMI. Absent: scleral icterus, conjunctival injection, periorbital swelling Respiratory exam: Present: normal lung sounds bilaterally. Absent: respiratory distress, wheezes, rales, rhonchi, stridor Cardiovascular Exam: Present: regular rate, normal rhythm, normal heart sounds. Absent: systolic murmur, diastolic murmur, rubs, gallop, clicks Neurological exam: Present: alert, oriented X3, CN II-XII intact Psychiatric exam: Present: normal affect, normal mood Skin exam: Present: warm, dry, intact, normal color. Absent: rash Course Vital Signs 04/21/24 04/21/24 08:36 13:33 Temperature 98.5 F Pulse Rate 79 86 Respiratory 20 16 Rate Blood Pressure 141/94 121/75 O2 Sat by Pulse 99 99 Oximetry Medical Decision Making - Medical Decision Making This is a 33 year old female who presents to the emergency department for a migraine. Was pt. sent in by a medical professional or institution? @ -No Did you speak to anyone other than the patient for history? @ -No Did you review nursing and triage notes? @ -Yes, and I agree, it is accurate with regards to the patient's symptoms. Were old charts reviewed? @ -No Differential Diagnosis? @ -Differential Headache: Migraine, tension, cluster, carbon monoxide, central venous thrombosis, pension karma temporal arteritis, acute closure glaucoma, intercranial hemorrhage, mastoiditis, sinusitis, head injury, this is not meant to be an all-inclusive list. EKG interpreted by me (3pts min.)? @ -Not obtained X-rays interpreted by me (1pt min.)? @ -Not obtained CT interpreted by me (1pt min.)? @ -Not obtained U/S interpreted by me (1pt. min.)? @ -Not obtained What testing was considered but not performed? (CT, X-rays, U/S, labs)? Why? @ -None What meds were considered but not given? Why? @ -None Did you discuss the management of the patient with other professionals? @ -No Did you reconcile home meds? @ -No Was smoking cessation discussed for >3mins.? @ -No Was critical care preformed (if so, how long)? @ -No Were there social determinants of health that impacted care today? How? (Homelessness, low income, unemployed, alcoholism, drug addiction, transportation, low edu. Level, literacy, decrease access to med. care, half-way, rehab)? @ -No Was there de-escalation of care discussed even if they declined? (Discuss DNR or withdrawal of care, Hospice)? @ -No What co-morbidities impacted this encounter? (DM, HTN, Smoking, COPD, CAD, Cancer, CVA, Hep., AIDS, mental health diagnosis, sleep apnea, morbid obesity)? @ -Migraines Was patient admitted / discharged? @ -Discharged. Lab work obtained and found to be unremarkable. Patient treated with a migraine cocktail consisting of IV fluids, Toradol, Decadron, Benadryl, and Compazine. She had significant relief in both the headache and nausea afterwards. She was resting comfortably and tolerating oral intake. She felt comfortable with discharge home at that time. Prescription for Toradol and Zofran provided for further symptomatic management if needed. Patient discharged home in stable condition. Case discussed with ED attending Dr. Bright. Return precautions reviewed in depth, the patient is instructed to return to the emergency department with any new, worsening, or concerning symptoms. Patient verbalized understanding. Undiagnosed new problem with uncertain prognosis? @ -None Drug Therapy requiring intensive monitoring for toxicity (Heparin, Nitro, Insulin, Cardizem)? @ -None Were any procedures done? @ -None Diagnosis/symptom? @ -Migraine headache Acute, or Chronic, or Acute on Chronic? @ -Acute Uncomplicated (without systemic symptoms) or Complicated (systemic symptoms)? @ -Uncomplicated Side effects of treatment? @ -None Exacerbation, Progression, or Severe Exacerbation] @ -Not applicable Poses a threat to life or bodily function? @ -No - Lab Data Result diagrams: 04/21/24 09:08 04/21/24 09:08 Lab Results 04/21/24 04/21/24 Range/Units 09:08 09:08 WBC 7.7 (3.8-10.6) k/uL RBC 4.67 (3.80-5.40) m/uL Hgb 13.0 (11.4-16.0) gm/dL Hct 40.1 (34.0-46.0) % MCV 85.8 (80.0-100.0) fL MCH 27.8 (25.0-35.0) pg MCHC 32.3 (31.0-37.0) g/dL RDW 12.4 (11.5-15.5) % Plt Count 263 (150-450) k/uL MPV 8.9 Neutrophils % 78 % Lymphocytes % 16 % Monocytes % 4 % Eosinophils % 1 % Basophils % 0 % Neutrophils # 6.0 (1.3-7.7) k/uL Lymphocytes # 1.2 (1.0-4.8) k/uL Monocytes # 0.3 (0-1.0) k/uL Eosinophils # 0.1 (0-0.7) k/uL Basophils # 0.0 (0-0.2) k/uL Sodium 139 (137-145) mmol/L Potassium 3.8 (3.5-5.1) mmol/L Chloride 105 (98-107) mmol/L Carbon Dioxide 26 (22-30) mmol/L Anion Gap 8 mmol/L BUN 9 (7-17) mg/dL Creatinine 0.71 (0.52-1.04) mg/dL Est GFR (CKD-EPI)AfAm >90 (>60 ml/min/1.73 sqM) Est GFR (CKD-EPI)NonAf >90 (>60 ml/min/1.73 sqM) Glucose 101 H (74-99) mg/dL Calcium 9.6 (8.4-10.2) mg/dL Magnesium 1.8 (1.6-2.3) mg/dL Total Bilirubin 0.6 (0.2-1.3) mg/dL AST 31 (14-36) U/L ALT 32 (4-34) U/L Alkaline Phosphatase 76 (38-126) U/L Total Protein 7.4 (6.3-8.2) g/dL Albumin 4.5 (3.5-5.0) g/dL HCG, Qual Not Detected Disposition Clinical Impression: Migraine headache Disposition: HOME SELF-CARE Instructions (If sedation given, give patient instructions): Acute Headache (ED) Additional Instructions: Return to the emergency department with any new, worsening, or concerning symptoms. Take the Toradol with Tylenol as needed for pain relief. If you choose to take the Toradol, do not take any other anti-inflammatories such as ibuprofen, take one or the other. Take the Zofran up to every 8 hours as needed for nausea and vomiting. Follow up with your primary care provider in 1-2 days. Prescriptions: Ketorolac [Toradol] 10 mg PO Q6HR PRN #15 tab PRN Reason: Pain Ondansetron Odt [Zofran Odt] 4 mg PO Q8HR PRN #15 tab PRN Reason: Nausea And Vomiting Is patient prescribed a controlled substance at d/c from ED?: No Referrals: [facility] [NON-STAFF] - 1-2 days [facility] [NON-STAFF] - 1-2 days None,Stated [Primary Care Provider] - 1-2 days Forms: Area PCPs
[2024-04-21 09:17] LABS: Basophils % (A) 0 %; Eosinophils # (A) 0.1 k/uL (0-0.7); Eosinophils % (A) 1 %; HCT 40.1 % (34.0-46.0); Lymphocytes # (A) 1.2 k/uL (1.0-4.8); Lymphocytes % (A) 16 %; MCH 27.8 pg (25.0-35.0); MCHC 32.3 g/dL (31.0-37.0); MCV 85.8 fL (80.0-100.0); Mean Platelet Volume 8.9; Monocytes # (A) 0.3 k/uL (0-1.0); Monocytes % (A) 4 %; Neutrophils % (A) 78 %; Platelet Count 263 k/uL (150-450); RBC 4.67 m/uL (3.80-5.40); RDW 12.4 % (11.5-15.5); WBC 7.7 k/uL (3.8-10.6)
[2024-04-21 09:38] LABS: HCG,Qualitative Serum Not Detected
[2024-04-21 09:41] LABS: ALT 32 U/L (4-34); AST 31 U/L (14-36); African American GFR (CKD) >90 (>60 ml/min/1.73 sqM); Albumin 4.5 g/dL (3.5-5.0); Alkaline Phosphatase 76 U/L (38-126); Anion Gap 8 mmol/L; Blood Urea Nitrogen 9 mg/dL (7-17); Calcium 9.6 mg/dL (8.4-10.2); Carbon Dioxide 26 mmol/L (22-30); Chloride 105 mmol/L (98-107); Glucose 101 mg/dL (74-99); Magnesium 1.8 mg/dL (1.6-2.3); Non-African American GFR(CKD) >90 (>60 ml/min/1.73 sqM); Potassium 3.8 mmol/L (3.5-5.1); Sodium 139 mmol/L (137-145); Total Bilirubin 0.6 mg/dL (0.2-1.3); Total Protein 7.4 g/dL (6.3-8.2)
[2024-04-21] MEDS: PROCHLORPERAZINE INJ 10 MG/2 ML VIAL IVP STA (09:44)
[2024-04-21] MEDS: DEXAMETHASONE SOD PHOSPHATE 10 MG/ML 1 ML VIAL IVP STA (09:44)
[2024-04-21] MEDS: diphenhydrAMINE 50 MG/ML 1 ML VIAL IVP STA (09:44)
[2024-04-21] MEDS: KETOROLAC 15 MG/ML 1 ML VIAL IVP STA (09:44)
[2024-04-21] MEDS: SODIUM CHLORIDE 0.9% 1,000 ML IV STA (09:45)
[2024-04-21] MEDS: ONDANSETRON 4 MG/2 ML VIAL IVP STA (12:47)
[2024-04-21 13:34] VITALS: BP 121/75; PULSE 86; RESP 16
== END 2024-04-21 13:32 | disposition home or self-care (01) ==
LOC: EC 08:35
DX: G43.909 Migraine, unspecified, not intractable, without status migrainosus (principal)
CPT/HCPCS: 36415; 80053; 83735; 84703; 85025; 96361; 96374; 96375; 99284

== ENCOUNTER 2024-05-15 08:12 | Emergency (ER) | payer OTHER ==
[2024-05-15 08:28] VITALS: RESP 18
--- NOTE | 2024-05-15 09:36 | ED ---
Extremity Problem HPI - General Chief complaint: Extremity Problem,Nontraumatic Stated complaint: R leg pain Time Seen by Provider: 05/15/24 08:30 Source: patient, RN notes reviewed Mode of arrival: ambulatory Limitations: no limitations - History of Present Illness Initial comments: 33-year-old female presents emergency department complaint of right thigh pain. Patient dates she had varicose veins in the past when she had laser therapy. Patient states that she has pain in, small area of swelling just proximal to the right knee. Denies any chest pain or shortness of breath no other complaints. - Related Data Home Medications Medication Instructions Recorded Confirmed Mirtazapine 30 mg PO HS 04/21/24 04/21/24 lamoTRIgine 200 mg PO DAILY 04/21/24 04/21/24 Previous Rx's Medication Instructions Recorded Ketorolac [Toradol] 10 mg PO Q6HR PRN #15 tab 04/21/24 Ondansetron Odt [Zofran Odt] 4 mg PO Q8HR PRN #15 tab 04/21/24 Allergies Allergy/AdvReac Type Severity Reaction Status Date / Time No Known Allergies Allergy Verified 04/21/24 12:53 Review of Systems ROS Statement: Those systems with pertinent positive or pertinent negative responses have been documented in the HPI. ROS Other: All systems not noted in ROS Statement are negative. Past Medical History Past Medical History: No Reported History Additional Past Medical History / Comment(s): Herpes Genitalis--possible outbreak 11/14/2013, migraine headaches History of Any Multi-Drug Resistant Organisms: None Reported Past Surgical History: Adenoidectomy, Section, Tonsillectomy, Tubal Ligation Additional Past Surgical History / Comment(s): [place] Teeth Past Anesthesia/Blood Transfusion Reactions: Postoperative Nausea & Vomiting (PONV) Past Psychological History: Anxiety, Bipolar, Depression Smoking Status: Never smoker Past Alcohol Use History: None Reported Past Drug Use History: Marijuana - Past Family History Mother Family Medical History: Cancer, Hypertension Father Family Medical History: Hypertension General Exam Limitations: no limitations General appearance: alert, in no apparent distress Head exam: Present: atraumatic, normocephalic, normal inspection Respiratory exam: Present: normal lung sounds bilaterally. Absent: respiratory distress, wheezes, rales, rhonchi, stridor Cardiovascular Exam: Present: regular rate, normal rhythm, normal heart sounds. Absent: systolic murmur, diastolic murmur, rubs, gallop, clicks Extremities exam: Present: other (Right distal thigh medial aspect there is a small palpable lump, minimal erythema) Course Vital Signs 05/15/24 08:24 Temperature 98.4 F Pulse Rate 75 Respiratory 18 Rate Blood Pressure 122/80 O2 Sat by Pulse 98 Oximetry Medical Decision Making - Medical Decision Making Was pt. sent in by a medical professional or institution (JEANETTE Zaldivar, [employer], urgent care, hospital, or fdc...) When possible be specific @ -No Did you speak to anyone other than the patient for history (EMS, parent, family, police, friend...)? What history was obtained from this source @ -No Did you review nursing and triage notes (agree or disagree)? Why? @ -I reviewed and agree with nursing and triage notes Were old charts reviewed (outside hosp., previous admission, EMS record, old EKG, old radiological studies, urgent care reports/EKG's, fdc records)? Report findings @ -No old charts were reviewed Differential Diagnosis (chest pain, altered mental status, abdominal pain women, abdominal pain men, vaginal bleeding, weakness, fever, dyspnea, syncope, headache, dizziness, GI bleed, back pain, seizure, CVA, palpatations, mental health, musculoskeletal)? @ -Superficial thrombophlebitis, DVT EKG interpreted by me (3pts min.). @ -None X-rays interpreted by me (1pt min.). @ -None done CT interpreted by me (1pt min.). @ -None done U/S interpreted by me (1pt. min.). @ -Ultrasound showing evidence of superficial thrombophlebitis no DVT What testing was considered but not performed or refused? (CT, X-rays, U/S, labs)? Why? @ -None What meds were considered but not given or refused? Why? @ -None Did you discuss the management of the patient with other professionals (professionals i.e. JEANETTE Zaldivar, [employer], lab, RT, psych nurse, social science teacher, academic physician, teacher, loan officer, pillowcase cleaner)? Give summary @ -No Was smoking cessation discussed for >3mins.? @ -No Was critical care preformed (if so, how long)? @ -No Were there social determinants of health that impacted care today? How? (Homelessness, low income, unemployed, alcoholism, drug addiction, transportation, low edu. Level, literacy, decrease access to med. care, correction, rehab)? @ -No Was there de-escalation of care discussed even if they declined (Discuss DNR or withdrawal of care, Hospice)? DNR status @ -No What co-morbidities impacted this encounter? (DM, HTN, Smoking, COPD, CAD, Cancer, CVA, ARF, Chemo, Hep., AIDS, mental health diagnosis, sleep apnea, morbid obesity)? @ -None Was patient admitted / discharged? Hospital course, mention meds given and route, prescriptions, significant lab abnormalities, going to OR and other pertinent info. @ -Disc charge patient has superficial thrombophlebitis will do warm compresses, anti-inflammatories Undiagnosed new problem with uncertain prognosis? @ -No Drug Therapy requiring intensive monitoring for toxicity (Heparin, Nitro, Insulin, Cardizem)? @ -No Were any procedures done? @ -No Diagnosis/symptom? @ -Right leg superficial thrombophlebitis Acute, or Chronic, or Acute on Chronic? @ -Acute Uncomplicated (without systemic symptoms) or Complicated (systemic symptoms)? @ -Uncomplicated Side effects of treatment? @ -No Exacerbation, Progression, or Severe Exacerbation? @ -No Poses a threat to life or bodily function? How? (Chest pain, [place], [place], pneumonia, PE, COPD, DKA, ARF, appy, cholecystitis, CVA, Diverticulitis, Homicidal, Suicidal, threat to staff... and all critical care pts) @ -No Disposition Clinical Impression: Superficial thrombosis of right lower extremity Disposition: HOME SELF-CARE Condition: Stable Instructions (If sedation given, give patient instructions): Superficial Thrombophlebitis (ED) Additional Instructions: Please return to the Emergency Department if symptoms worsen or any other concerns. Is patient prescribed a controlled substance at d/c from ED?: No Referrals: None,Stated [Primary Care Provider] - 1-2 days Time of Disposition: 09:36
--- NOTE | 2024-05-15 09:37 | US ---
EXAMINATION TYPE: US venous doppler duplex LE RT DATE OF EXAM: 05/15/2024 9:22 AM COMPARISON: US 2019 CLINICAL INDICATION: Female, 33 years old with history of pain; Pain and swelling medial right thigh, Pain, Swelling TECHNIQUE: The lower extremity deep venous system is examined utilizing real time linear array sonog moisés with graded compression, color doppler sonography, and spectral doppler. SIDE PERFORMED: Right FINDINGS: VESSELS IMAGED: Common Femoral Vein Deep Femoral Vein Greater Saphenous Vein * Femoral Vein Popliteal Vein Small Saphenous Vein * Proximal Calf Veins (* superficial vessels) Right Leg: Appears negative for DVT Scanned at patient's area of concern - medial thigh - thrombus seen within superficial vessel IMPRESSION: No ultrasound evidence for deep venous thrombosis. [facility], , 05/15/2024 9:35 AM
[2024-05-15 09:45] VITALS: BP 120/84; PULSE 77; TEMP 98.2
== END 2024-05-15 10:26 | disposition home or self-care (01) ==
LOC: EC 08:12
DX: I82.811 Embolism and thrombosis of superficial veins of right lower extremity (principal)
CPT/HCPCS: 99283

== ENCOUNTER 2024-10-29 08:46 | Emergency (ER) | payer OTHER ==
[2024-10-29 08:50] VITALS: RESP 18
--- NOTE | 2024-10-29 09:09 | ED ---
General Adult HPI - General Chief complaint: Abdominal Pain Stated complaint: groin/abd pain Time Seen by Provider: 10/29/24 08:55 Source: patient, RN notes reviewed, old records reviewed Mode of arrival: ambulatory Limitations: no limitations - History of Present Illness Initial comments: Patient is a 34-year-old female presents emergency department complaining of abdominal pain. States is in the left lower quadrant of her abdomen. Patient had a thorough workup done yesterday at [facility] and was discharged home with a diagnosis of UTI. Workup yesterday included CT of the abdomen pelvis as well as ultrasound. Ultimately imaging was negative. As far as patient is aware. Presents for further evaluation at this time. Patient has no significant abdominal surgeries except for section. Denies any vaginal discharge but does endorse vaginal bleeding as she did just start her period yesterday and she does have a history of ovarian cyst and wonders if that ruptured. Denies any dysuria. Denies any cough, congestion. Does endorse some mild nausea. Endorses chronic diarrhea. No blood in the diarrhea. No emesis. Presents for further evaluation at this time. Denies any fevers at home. - Related Data Home Medications Medication Instructions Recorded Confirmed Mirtazapine 30 mg PO HS 04/21/24 04/21/24 lamoTRIgine 200 mg PO DAILY 04/21/24 04/21/24 Previous Rx's Medication Instructions Recorded Ketorolac [Toradol] 10 mg PO Q6HR PRN #15 tab 04/21/24 Ondansetron Odt [Zofran Odt] 4 mg PO Q8HR PRN #15 tab 04/21/24 Ketorolac [Toradol] 10 mg PO Q8HR 5 Days #15 tab 10/29/24 Allergies Allergy/AdvReac Type Severity Reaction Status Date / Time No Known Allergies Allergy Verified 10/29/24 08:50 Review of Systems ROS Statement: Those systems with pertinent positive or pertinent negative responses have been documented in the HPI. Review of Systems: CONST: Denies fever EYES: Denies blurry vision ENT: Denies nasal congestion C/V: Denies Chest pain RESP: Denies shortness of breath GI: Endorses abdominal pain : Denies dysuria SKIN: Denies rash. MSK: Denies joint pain. NEURO: Denies headache ROS Other: All systems not noted in ROS Statement are negative. Past Medical History Past Medical History: No Reported History Additional Past Medical History / Comment(s): Herpes Genitalis--possible outbreak 11/14/2013, migraine headaches History of Any Multi-Drug Resistant Organisms: None Reported Past Surgical History: Adenoidectomy, Section, Tonsillectomy, Tubal Ligation Additional Past Surgical History / Comment(s): [place] Teeth Past Anesthesia/Blood Transfusion Reactions: Postoperative Nausea & Vomiting (PO NV) Past Psychological History: Anxiety, Bipolar, Depression Smoking Status: Never smoker Past Alcohol Use History: None Reported Past Drug Use History: Marijuana - Past Family History Mother Family Medical History: Cancer, Hypertension Father Family Medical History: Hypertension General Exam - General Exam Comments Initial Comments: General: Appears in no acute distress. HEAD: Normal with no signs of head trauma. EYES: EOMI ENT: Hearing grossly intact, normal oropharynx. RESPIRATORY: Clear breath sounds bilaterally. No wheezes, rales, or rhonchi. C/V: Regular rate and rhythm. S1 and S2 auscultated, no edema, peripheral pulses 2+ and intact throughout ABD: Abdomen soft, nondistended. Tender to palpation in the left lower quadrant that is mild. No guarding or rebound tenderness. No peritoneal signs. EXT: Normal range of motion, no obvious deformity SKIN: No rashes or lesions observed on exposed skin. NEURO: Alert and oriented x 4 Limitations: no limitations Course Vital Signs 10/29/24 10/29/24 10/29/24 08:47 10:16 11:10 Temperature 97.9 F 98 F Pulse Rate 62 56 L 61 Respiratory 18 18 18 Rate Blood Pressure 127/83 118/72 111/71 O2 Sat by Pulse 100 100 99 Oximetry Medical Decision Making - Medical Decision Making Was pt. sent in by a medical professional or institution (, PA, STEWARD/STEWARDESS BATH, urgent care, hospital, or correction...) When possible be specific @ -No Did you speak to anyone other than the patient for history (EMS, parent, family, police, friend...)? What history was obtained from this source @ -No Did you review nursing and triage notes (agree or disagree)? Why? @ -I reviewed and agree with nursing and triage notes Were old charts reviewed (outside hosp., previous admission, EMS record, old EKG, old radiological studies, urgent care reports/EKG's, correction records)? Report findings @ -Reviewed chart from [facility] from visit yesterday on 10/28/[address] results as well as ultrasound results and lab results. Patient was diagnosed with a UTI and labs and imaging otherwise unremarkable. Differential Diagnosis (chest pain, altered mental status, abdominal pain women, abdominal pain men, vaginal bleeding, weakness, fever, dyspnea, syncope, headache, dizziness, GI bleed, back pain, seizure, CVA, palpatations, mental health, musculoskeletal)? @ -Differential Abdominal Pain Women: Appendicitis, Cholecystitis, diverticulosis, ischemic bowel, pancreatitis, hepatitis, UTI, gastroenteritis, AAA, incarcerated hernia, bowel obstruction, constipation, inflammatory bowel, hepatitis, peptic ulcer disease, splenic infarction, perforated viscus, vulvitis, ovarian torsion, PID, kidney stone, placenta abruption, this is not meant to be an all-inclusive list EKG interpreted by me (3pts min.). @ -None done X-rays interpreted by me (1pt min.). @ -None done CT interpreted by me (1pt min.). @ -None done U/S interpreted by me (1pt. min.). @ -Pelvic ultrasound shows nonspecific physiological free fluid as well as endometrial stripe consistent with her menstrual cycle. No other obvious acute findings. No evidence of ovarian torsion. What testing was considered but not performed or refused? (CT, X-rays, U/S, labs)? Why? @ -None What meds were considered but not given or refused? Why? @ -None Did you discuss the management of the patient with other professionals (professionals i.e. , PA, STEWARD/STEWARDESS BATH, lab, RT, psych nurse, sexual assault social worker, coat fitter, teacher, detention officer, skilled nursing case manager)? Give summary @ -No Was smoking cessation discussed for >3mins.? @ -No Was critical care preformed (if so, how long)? @ -No Were there social determinants of health that impacted care today? How? ( Homelessness, low income, unemployed, alcoholism, drug addiction, transportation, low edu. Level, literacy, decrease access to med. care, correction, rehab)? @ -No Was there de-escalation of care discussed even if they declined (Discuss DNR or withdrawal of care, Hospice)? DNR status @ -No What co-morbidities impacted this encounter? (DM, HTN, Smoking, COPD, CAD, Cancer, CVA, ARF, Chemo, Hep., AIDS, mental health diagnosis, sleep apnea, morbid obesity)? @ -None Was patient admitted / discharged? Hospital course, mention meds given and route, prescriptions, significant lab abnormalities, going to OR and other pertinent info. @ -Based on the patient's presentation and physical exam, patient presents emergency department for abdominal pain. Seen at [facility] last night. Presents for further evaluation at this time. We will attempt to obtain workup from outside hospital from yesterday including CT imaging results and ultrasound results and lab results. We will repeat abdominal labs at this time as well as a pelvic ultrasound to evaluate for ovarian torsion. She will be symptomatically treated with IV fluids, IV Toradol, IV Protonix, IV Zofran. Patient was in agreement this plan. Vitals are within acceptable limits. [facility] transfer files reviewed and showed a relatively unremarkable workup. Was diagnosed with a UTI. Imaging unremarkable. Today's laboratory studies relatively unremarkable. Slight lactic acidosis of 2.1 however treated with IV fluids. Patient is not eaten today which is likely cause. Ultrasound shows physiologic free fluid with findings consistent with current menstrual cycle. I discussed results with patient. I believe it is safer to be discharged home. Patient's pain has resolved. She was in agreement this plan. Recommended follow-up with her PCP and [facility]. She will be given contact info for both. She will be discharged home with ketorolac prescription as well as ODT Zofran. Strict return precautions discussed.Recommended she complete her course of antibiotics prescribed at the other emergency department. I instructed the patient to follow up with their PCP in the next 1-3 days. I explained that the patient should return to the emergency department if they experience any worsening symptoms. Strict return precautions were discussed with the patient. The patient expressed understanding of these instructions. I answered all questions that the patient had. The patient was discharged home in good condition with their prescriptions and follow up information. Undiagnosed new problem with uncertain prognosis? @ -No Drug Therapy requiring intensive monitoring for toxicity (Heparin, Nitro, In sulin, Cardizem)? @ -No Were any procedures done? @ -No Diagnosis/symptom? @ -Abdominal pain of unknown etiology, crampy pain associate with menses Acute, or Chronic, or Acute on Chronic? @ -Acute Uncomplicated (without systemic symptoms) or Complicated (systemic symptoms)? @ -Uncomplicated Side effects of treatment? @ -None Exacerbation, Progression, or Severe Exacerbation] @ -No Poses a threat to life or bodily function? @ -Unlikely at this time - Lab Data Result diagrams: 10/29/24 09:17 10/29/24 09:17 Lab Results 10/29/24 10/29/24 10/29/24 Range/Units 09:17 09:17 09:17 WBC 10.23 H (4.50-10.00) 10*3/uL RBC 4.41 (4.10-5.20) 10*6/uL Hgb 12.5 (12.0-15.0) g/dL Hct 37.2 (37.2-46.3) % MCV 84.4 (80.0-97.0) fL MCH 28.3 (27.0-32.0) pg MCHC 33.6 (32.0-37.0) g/dL Plt Count 278 (140-440) 10*3/uL MPV 11.1 (9.5-12.2) fL Immature Gran % (Auto) 0.7 % Neutrophils % 75.0 % Lymphocytes % 16.2 % Monocytes % 5.3 % Eosinophils % 2.2 % Basophils % 0.6 % Immature Gran # 0.07 H (0.00-0.04) 10*3/uL Neutrophils # 7.67 (1.80-7.70) 10*3/uL Lymphocytes # 1.66 (0.90-5.00) 10*3/uL Monocytes # 0.54 (0.20-1.00) 10*3/uL Eosinophils # 0.23 (0.04-0.35) 10*3/uL Basophils # 0.06 (0.00-0.10) 10*3/uL PT (10.0-12.5) sec INR (<1.2) APTT (22.0-30.0) sec Sodium 139 (137-145) mmol/L Potassium 4.1 (3.5-5.1) mmol/L Chloride 106 (98-107) mmol/L Carbon Dioxide 25 (22-30) mmol/L Anion Gap 8 mmol/L BUN 12 (7-17) mg/dL Creatinine 0.69 (0.52-1.04) mg/dL Est GFR (CKD-EPI)AfAm >90 (>60 ml/min/1.73 sqM) Est GFR (CKD-EPI)NonAf >90 (>60 ml/min/1.73 sqM) Glucose 103 H (74-99) mg/dL Lactic Ac Sepsis Rflx Plasma Lactic Acid [place]air 2.1 H* (0.7-2.0) mmol/L Calcium 9.4 (8.4-10.2) mg/dL Total Bilirubin 0.5 (0.2-1.3) mg/dL AST 24 (14-36) U/L ALT 24 (4-34) U/L Alkaline Phosphatase 85 (38-126) U/L Total Protein 7.0 (6.3-8.2) g/dL Albumin 4.2 (3.5-5.0) g/dL Amylase 49 (30-110) U/L Lipase 69 (23-300) U/L Urine Color Urine Appearance (Clear) Urine pH (5.0-8.0) Ur Specific [place] (1.001-1.035) Urine Protein (Negative) Urine Glucose (UA) (Negative) Urine Ketones (Negative) Urine Blood (Negative) Urine Nitrite (Negative) Urine Bilirubin (Negative) Urine Urobilinogen (<2.0) mg/dL Ur Leukocyte Esterase (Negative) Urine RBC (0-5) /hpf Urine WBC (0-5) /hpf Ur Squamous Epith Cells (0-4) /hpf Urine Bacteria (None) /hpf Urine Mucus (None) /hpf Urine HCG, Qual (Not Detectd) 10/29/24 10/29/24 10/29/24 Range/Units 09:17 09:17 09:22 WBC (4.50-10.00) 10*3/uL RBC (4.10-5.20) 10*6/uL Hgb (12.0-15.0) g/dL Hct (37.2-46.3) % MCV (80.0-97.0) fL MCH (27.0-32.0) pg MCHC (32.0-37.0) g/dL Plt Count (140-440) 10*3/uL MPV (9.5-12.2) fL Immature Gran % (Auto) % Neutrophils % % Lymphocytes % % Monocytes % % Eosinophils % % Basophils % % Immature Gran # (0.00-0.04) 10*3/uL Neutrophils # (1.80-7.70) 10*3/uL Lymphocytes # (0.90-5.00) 10*3/uL Monocytes # (0.20-1.00) 10*3/uL Eosinophils # (0.04-0.35) 10*3/uL Basophils # (0.00-0.10) 10*3/uL PT 11.2 (10.0-12.5) sec INR 1.0 (<1.2) APTT 25.2 (22.0-30.0) sec Sodium (137-145) mmol/L Potassium (3.5-5.1) mmol/L Chloride (98-107) mmol/L Carbon Dioxide (22-30) mmol/L Anion Gap mmol/L BUN (7-17) mg/dL Creatinine (0.52-1.04) mg/dL Est GFR (CKD-EPI)AfAm (>60 ml/min/1.73 sqM) Est GFR (CKD-EPI)NonAf (>60 ml/min/1.73 sqM) Glucose (74-99) mg/dL Lactic Ac Sepsis Rflx Plasma Lactic Acid [place] (0.7-2.0) mmol/L Calcium (8.4-10.2) mg/dL Total Bilirubin (0.2-1.3) mg/dL AST (14-36) U/L ALT (4-34) U/L Alkaline Phosphatase (38-126) U/L Total Protein (6.3-8.2) g/dL Albumin (3.5-5.0) g/dL Amylase (30-110) U/L Lipase (23-300) U/L Urine Color Light Yellow Urine Appearance Clear (Clear) Urine pH 5.0 (5.0-8.0) Ur Specific [place] 1.016 (1.001-1.035) Urine Protein Negative (Negative) Urine Glucose (UA) Negative (Negative) Urine Ketones Negative (Negative) Urine Blood Moderate H (Negative) Urine Nitrite Negative (Negative) Urine Bilirubin Negative (Negative) Urine Urobilinogen <2.0 (<2.0) mg/dL Ur Leukocyte Esterase Negative (Negative) Urine RBC <1 (0-5) /hpf Urine WBC <1 (0-5) /hpf Ur Squamous Epith Cells 1 (0-4) /hpf Urine Bacteria Occasional H (None) /hpf Urine Mucus Rare H (None) /hpf Urine HCG, Qual Not Detected (Not Detectd) 10/29/24 Range/Units 09:42 WBC (4.50-10.00) 10*3/uL RBC (4.10-5.20) 10*6/uL Hgb (12.0-15.0) g/dL Hct (37.2-46.3) % MCV (80.0-97.0) fL MCH (27.0-32.0) pg MCHC (32.0-37.0) g/dL Plt Count (140-440) 10*3/uL MPV (9.5-12.2) fL Immature Gran % (Auto) % Neutrophils % % Lymphocytes % % Monocytes % % Eosinophils % % Basophils % % Immature Gran # (0.00-0.04) 10*3/uL Neutrophils # (1.80-7.70) 10*3/uL Lymphocytes # (0.90-5.00) 10*3/uL Monocytes # (0.20-1.00) 10*3/uL Eosinophils # (0.04-0.35) 10*3/uL Basophils # (0.00-0.10) 10*3/uL PT (10.0-12.5) sec INR (<1.2) APTT (22.0-30.0) sec Sodium (137-145) mmol/L Potassium (3.5-5.1) mmol/L Chloride (98-107) mmol/L Carbon Dioxide (22-30) mmol/L Anion Gap mmol/L BUN (7-17) mg/dL Creatinine (0.52-1.04) mg/dL Est GFR (CKD-EPI)AfAm (>60 ml/min/1.73 sqM) Est GFR (CKD-EPI)NonAf (>60 ml/min/1.73 sqM) Glucose (74-99) mg/dL Lactic Ac Sepsis Rflx Y Plasma Lactic Acid [place] (0.7-2.0) mmol/L Calcium (8.4-10.2) mg/dL Total Bilirubin (0.2-1.3) mg/dL AST (14-36) U/L ALT (4-34) U/L Alkaline Phosphatase (38-126) U/L Total Protein (6.3-8.2) g/dL Albumin (3.5-5.0) g/dL Amylase (30-110) U/L Lipase (23-300) U/L Urine Color Urine Appearance (Clear) Urine pH (5.0-8.0) Ur Specific [place] (1.001-1.035) Urine Protein (Negative) Urine Glucose (UA) (Negative) Urine Ketones (Negative) Urine Blood (Negative) Urine Nitrite (Negative) Urine Bilirubin (Negative) Urine Urobilinogen (<2.0) mg/dL Ur Leukocyte Esterase (Negative) Urine RBC (0-5) /hpf Urine WBC (0-5) /hpf Ur Squamous Epith Cells (0-4) /hpf Urine Bacteria (None) /hpf Urine Mucus (None) /hpf Urine HCG, Qual (Not Detectd) Disposition Clinical Impression: Abdominal pain of unknown etiology, Crampy pain associated with menses Disposition: HOME SELF-CARE Condition: Good Instructions (If sedation given, give patient instructions): Abdominal Pain (ED) Prescriptions: Ketorolac [Toradol] 10 mg PO Q8HR 5 Days #15 tab Is patient prescribed a controlled substance at d/c from ED?: No Referrals: None,Stated [Primary Care Provider] - 1-2 days Yael Chandra DO [Doctor of Osteopathic Medicine] - 1-2 days Forms: Area PCPs Time of Disposition: 11:00
[2024-10-29] MEDS: PANTOPRAZOLE 40 MG/10 ML VIAL IVP STA (09:13)
[2024-10-29] MEDS: SODIUM CHLORIDE 0.9% 1,000 ML IV ONE (09:13)
[2024-10-29] MEDS: KETOROLAC 15 MG/ML 1 ML VIAL IVP STA (09:14)
[2024-10-29] MEDS: ONDANSETRON 4 MG/2 ML VIAL IVP STA (09:14)
[2024-10-29 09:23] LABS: Basophils # (A) 0.06 10*3/uL (0.00-0.10); Basophils % (A) 0.6 %; Eosinophils # (A) 0.23 10*3/uL (0.04-0.35); Eosinophils % (A) 2.2 %; HCT 37.2 % (37.2-46.3); HGB 12.5 g/dL (12.0-15.0); Lymphocytes # (A) 1.66 10*3/uL (0.90-5.00); Lymphocytes % (A) 16.2 %; MCH 28.3 pg (27.0-32.0); MCHC 33.6 g/dL (32.0-37.0); MCV 84.4 fL (80.0-97.0); Mean Platelet Volume 11.1 fL (9.5-12.2); Monocytes # (A) 0.54 10*3/uL (0.20-1.00); Monocytes % (A) 5.3 %; Neutrophils # (A) 7.67 10*3/uL (1.80-7.70); Platelet Count 278 10*3/uL (140-440); RBC 4.41 10*6/uL (4.10-5.20); RDW 12.5 % (11.5-14.5); WBC 10.23 10*3/uL (4.50-10.00)
[2024-10-29 09:26] LABS: Appearance,Urine Clear (Clear); Bacteria,Urine Occasional /hpf; Bilirubin,Urine Negative (Negative); Blood,Urine Moderate (Negative); Color,Urine Light Yellow; Glucose,Urine (UA) Negative (Negative); Ketones,Urine Negative (Negative); Leukocyte Esterase,Urine Negative (Negative); Mucus,Urine Rare /hpf; Nitrite,Urine Negative (Negative); Protein,Urine Negative (Negative); RBC,Urine <1 /hpf (0-5); Specific Gravity,Urine 1.016 (1.001-1.035); Squamous Epithelial Cell,Urine 1 /hpf (0-4); Urobilinogen,Urine <2.0 mg/dL (<2.0); WBC,Urine <1 /hpf (0-5)
[2024-10-29 09:35] LABS: ALT 24 U/L (4-34); AST 24 U/L (14-36); African American GFR (CKD) >90 (>60 ml/min/1.73 sqM); Albumin 4.2 g/dL (3.5-5.0); Alkaline Phosphatase 85 U/L (38-126); Amylase 49 U/L (30-110); Anion Gap 8 mmol/L; Blood Urea Nitrogen 12 mg/dL (7-17); Calcium 9.4 mg/dL (8.4-10.2); Carbon Dioxide 25 mmol/L (22-30); Chloride 106 mmol/L (98-107); Glucose 103 mg/dL (74-99); Lipase 69 U/L (23-300); Non-African American GFR(CKD) >90 (>60 ml/min/1.73 sqM); Potassium 4.1 mmol/L (3.5-5.1); Sodium 139 mmol/L (137-145); Total Bilirubin 0.5 mg/dL (0.2-1.3)
[2024-10-29 09:44] LABS: Partial Thromboplastin Time 25.2 sec (22.0-30.0); Prothrombin Time 11.2 sec (10.0-12.5)
--- NOTE | 2024-10-29 10:51 | US ---
EXAMINATION TYPE: US pelvis complete transvag plus Dopplers DATE OF EXAM: 10/29/2024 COMPARISON: 12/28/2012 CLINICAL INDICATION: Female, 34 years old with history of evaluate for torsion/ovarian cysts; LLQ Chloe n x 1-2 days, new cycle started this am, Hx ruptured cysts TECHNIQUE: Transvaginal (TV) and Transabdominal (TA) . Transvaginal images were ordered, TA needed to evaluate the ovaries Doppler imaging: Color Doppler Images were obtained. Spectral doppler images were obtained. FINDINGS: Date of LMP: 09/27/2024 & now EXAM MEASUREMENTS: Uterus: 9.9 x 5.2 x 4.6 cm Endometrial Stripe: 1.2 cm Right Ovary: 2.9 x 2.1 x 2.6 cm Left Ovary: 3.0 x 1.8 x 1.9 cm 1. Uterus: Anteverted and otherwise wnl 2. Endometrium: wnl 3. Right Ovary: wnl 4. Left Ovary: wnl Spectral, color and waveform doppler imaging shows good peripheral arterial and venous flow within the ovaries 5. Bilateral Adnexa: wnl; ?fluid seen transabdominally within the right adnexa vs bowel 6. Posterior cul-de-sac: wnl IMPRESSION: 1. No sonographic evidence for ovarian torsion. 2. Nonspecific mild free fluid within the right adnexa, probably physiologic. Clinically correlate. 3. Endometrial stripe thickness of 1.2 cm should correspond to the secretory phase of the menstrual c ycle. [facility], Workstation: [email or web address], 10/29/2024 10:48 AM
[2024-10-29] MEDS: ONDANSETRON 4 MG ODT STARTER PACK 2 TAB BTL PO STA (11:06)
[2024-10-29 11:11] VITALS: BP 111/71; PULSE 61; TEMP 98
== END 2024-10-29 11:11 | disposition home or self-care (01) ==
LOC: EC 08:46
DX: R10.32 Left lower quadrant pain (principal); E87.20 Acidosis, unspecified; Z90.89 Acquired absence of other organs
CPT/HCPCS: 36415; 80053; 82150; 83605; 83690; 85025; 85610; 85730; 81001; 81025; 93975; 76856; 76830; 99285; 96374; 96375 ×2; 96361; J2405; J1885; S0119; J2470